=== PATIENT | male | born 1965 | race Caucasian/White ===

== ENCOUNTER 2017-02-15 16:18 | Emergency (ER) | payer SELFPAY ==
[~2017-02-15 16:18] MED LIST: APRESOLINE-DPS50 MG PO; ASA CHILDREN'S81 MG PO; ATIVAN-DPS2 MG PO; BYSTOLIC5 MG PO; COZAAR DPS50 MG PO; CRESTOR20 MG PO; LASIX DPS40 MG PO; NEURONTIN DPS300 MG PO; PROAIR RESPICL90 MCG IH; SYMBICORT 16010.2 GM IH; SYNTHROID25 MCG PO; TRIGLIDE160 MG PO; ZAROXOLYN2.5 MG PO
--- NOTE | 2017-02-18 12:41 | ER ---
ADMIT: 02/15/2017 RM/LOC: ER [facility] MR#: [id number] [address] [id number] ARMIDA GRAHAM [address] [place] [address] Emergency Room Report SEX: M AGE: 51 : 1965 DATE: 02/15/2017 ADDENDUM: A 51-year-old white male with known renal insufficiency. He just came off dialysis six weeks ago trying to see if he would hold. Dr. Tarango is his conductor/brakeman who told him that he would be back on dialysis in six months. Basically, his last six weeks. At this time, his potassium is 5, his creatinine is 6.2. He is not in overt failure. He is retaining some fluid but not acute. I spoke with Dr. Tarango twice last time. His office will contact him in the morning and they will make arrangements to putting him back on the dialysis schedule. CONDITION ON DISCHARGE: Good. Gamaliel Buck MD/ tawanda JOB #: [id number] CC: Gamaliel Buck MD, Attending Physician Silviano Tarango MD, Family Physician
== END 2017-02-15 17:28 | disposition home or self-care (01) ==
LOC: ER 16:18
DX: I12.9 Hypertensive chronic kidney disease with stage 1 through stage 4 chronic kidney disease, or unspecified chronic kidney disease (principal); N18.9 Chronic kidney disease, unspecified; F17.210 Nicotine dependence, cigarettes, uncomplicated; E11.9 Type 2 diabetes mellitus without complications; J44.9 Chronic obstructive pulmonary disease, unspecified; F41.9 Anxiety disorder, unspecified; Z99.2 Dependence on renal dialysis; Z79.84 Long term (current) use of oral hypoglycemic drugs; Z79.899 Other long term (current) drug therapy

== ENCOUNTER 2017-02-16 21:45 | Emergency (ER) | payer SELFPAY ==
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
== END 2017-02-17 00:50 | disposition short-term general hospital (02) ==
LOC: ER 21:45
DX: A41.9 Sepsis, unspecified organism (principal); I13.2 Hypertensive heart and chronic kidney disease with heart failure and with stage 5 chronic kidney disease, or end stage renal disease; I50.9 Heart failure, unspecified; N18.6 End stage renal disease; Z99.2 Dependence on renal dialysis; L03.116 Cellulitis of left lower limb; E11.9 Type 2 diabetes mellitus without complications; F17.210 Nicotine dependence, cigarettes, uncomplicated; Z98.890 Other specified postprocedural states; Z79.84 Long term (current) use of oral hypoglycemic drugs; Z79.899 Other long term (current) drug therapy